=== PATIENT | female | born 1980 | race Caucasian/White ===

== ENCOUNTER 2016-12-28 18:18 | Emergency (ER) | payer MEDICAID ==
[~2016-12-28] VITALS: Ht 165.1 cm; Wt 87.0 kg
[2016-12-28 18:46] VITALS: Ht 165.1 cm; Wt 87.0 kg
[2016-12-28] MEDS ORDERED: CIPR7.5D4 RIGHT EAR (19:07)
[2016-12-28] MEDS ORDERED: IBUP400T22 PO (19:07)
--- NOTE | 2016-12-28 20:29 | ERD ---
ER Documentation Chief Complaint Date/Time DATE: 12/28/16 TIME: 20:24 Chief Complaint r ear pain since thursday HPI This is a 36-year-old female presents to the ER for right earache 2 days. Patient also states she has intermittent sore throat. No difficulty swallowing or drooling. No muffled voice. No fevers or chills. No difficulty breathing, shortness of breath or wheezing. No drainage from ear. Patient states when she was younger about 19 years ago she had ear surgery. ROS All systems reviewed and are negative except as per history of present illness. Medications Home Meds Active Scripts Ibuprofen* (Motrin*) 400 Mg Tab, 400 MG PO Q6, #10 TAB Prov:NURIA GRAHAM NP 12/28/16 Ciprofloxacin Hcl/Dexameth (Ciprodex Otic Suspension) 7.5 Ml Drops.susp, 4 DROP RIGHT EAR BID, #1 BOTTLE Prov:NURIA GRAHAM Mary VINCENT 12/28/16 Allergies Allergies: Coded Allergies: No Known Drug Allergy (Verified Allergy, Unknown, 01/25/10) PMhx/Soc Medical and Surgical Hx: pt denies Medical Hx, pt denies Surgical Hx History of Surgery: Yes (ear surgery) Physical Exam Vitals Vital Signs Date Time Temp Pulse Resp B/P Pulse Ox O2 Delivery O2 Flow Rate FiO2 12/28/16 18:46 98.4 100 18 152/73 98 Physical Exam Const: Alert, [id number] Head: Atraumatic Eyes: Normal Conjunctiva ENT: Normal External Ears, Nose and Mouth. TMs normal bilaterally. No erythema or exudate posterior pharynx. Neck: Full range of motion..~ No meningismus. No lymphadenopathy Resp: Clear to auscultation bilaterally. No wheezing, rhonchi or crackles. Cardio: Regular rate and rhythm, no murmurs Abd: Soft, non tender, non distended. Normal bowel sounds Skin: No petechiae or rashes Back: No midline or flank tenderness Ext: No cyanosis, or edema Neur: Awake and alert Psych: Normal Mood and Affect Procedures/MDM [facility] MDM: This is a 36-year-old female presents emergency department for right ear pain 2 days. No fevers or chills. Exam is overall unremarkable. Patient's states she is having significant pain rating 8/10. Has taken Tylenol for this at home with last dose about 3 hours ago prior to arrival. Vital signs remained stable. Temp of 99.7F upon arrival to ED. Low suspicion for otitis media, mastoiditis, strep pharyngitis, pneumonia or pleural effusion. Patient likely has otitis externa. Patient is appropriate for outpatient management will be given prescriptions for Ciprodex and ibuprofen. Instructed patient to follow-up with primary care provider in the next 2-3 days for reassessment. Resources provided. Return to ED for any high fever, chest pain, difficulty breathing, shortness breath, wheezing, vomiting, diarrhea, abdominal pain or any new or worsening symptoms. Patient verbalizes understanding. All questions answered at discharge. Latvian translation use during this encounter. Departure Diagnosis: Primary Impression: Otitis externa Otitis externa type: unspecified type Laterality: right Chronicity: acute Qualified Code: H60.501 - Acute otitis externa of right ear, unspecified type Condition: Stable Patient Instructions: External Ear Infection (Adult) [facility] Usted se mahoney hecho un examen mdico de control que le indica que no est en jameel condicin que requiera tratamiento urgente en el Departamento de Emergencia. Un estudio ms profundo y el tratamiento de oquendo condicin pueden esperar sin ningn riesgo hasta que usted sea atendida/o en el consultorio de oquendo mdico o jameel cl alicia. Es responsabilidad suya arreglar jameel ethel para el seguimiento del jesse. MANEJO DE CONDICIONES NO URGENTES EN EL FUTURO 1) Si usted tiene un mdico de atencin primaria: Usted debera llamar a oquendo mdico de atencin primaria antes de venir al departamento de emergencia. Despus de las horas de consultorio, oquendo doctor o oquendo asociado/a est disponible por telfono. El mdico o enfermero de aubrey en el servicio telefnico puede asesorarle por karla medio para atender el problema, o jesse contrario se puede programar jameel ethel. 2) Si usted no tiene un mdico de atencin primaria: Llame al mdico o clnica de referencia que aparece abajo estefani las horas de consultorio para hacer jameel ethel para que le vean. CLINICAS: [facility] [phone] [facility] [phone] [facility] [phone] [place] [address] [phone] [place] [phone] [address] [facility]. [phone] [address] [facility]. [facility] () Usted se mahoney hecho un examen mdico de control que le indica que no est en jameel condicin que requiera tratamiento urgente en el Departamento de Emergencia. Un estudio ms profundo y el tratamiento de oquendo condicin pueden esperar sin ningn riesgo hasta que usted sea atendida/o en el consultorio de oquendo mdico o jameel cl alicia. Es responsabilidad suya arreglar jameel ethel para el seguimiento del jesse. MANEJO DE CONDICIONES NO URGENTES EN EL FUTURO 1) Si usted tiene un mdico de atencin primaria: Usted debera llamar a oquendo mdico de atencin primaria antes de venir al departamento de emergencia. Despus de las horas de consultorio, oquendo doctor o oquendo asociado/a est disponible por telfono. El mdico o enfermero de aubrey en el servicio telefnico puede asesorarle por karla medio para atender el problema, o jesse contrario se puede programar jameel ethel. 2) Si usted no tiene un mdico de atencin primaria: Llame al mdico o condado institucions de referencia que aparece abajo estefani las horas de consultorio para hacer jameel ethel para que le vean. SI USTED NO PUEDE PAGAR PARA LEONOR UN MEDICO puede ir a: [facility] [address] [place] [address] [facility] [address] [place] [address] [facility] [address] [place] [address] [facility] [address] [place], [place] [id number] Additional Instructions: Llame al doctor MAANA y juan antonio jameel ETHEL PARA DENTRO DE 2-3 CERRATO.Dgale a la secretaria que nosotros le instruimos hacer esta ethel.Avise o llame si oquendo condicin se empeora antes de la ethel. Regresa aqui si peor o no mejor. NURIA GRAHAM NP Dec 28, 2016 20:29
== END 2016-12-28 19:09 | disposition home or self-care (01) ==
LOC: E/R 18:18
DX: H60.501 Unspecified acute noninfective otitis externa, right ear (principal)
CPT/HCPCS: 99283